=== PATIENT | male | born 1970 | race Caucasian/White ===

== ENCOUNTER 2025-03-19 18:17 | Emergency (ER) | payer BC, SELFPAY ==
[2025-03-19 18:20] VITALS: BP 154/90; PULSE 91; RESP 20; TEMP 36.6; O2SAT 97
--- NOTE | 2025-03-19 18:30 | DI.CT_ITS ---
Exam(s) CT BRAIN NECK CTA EXAM: CT BRAIN NECK CTA CLINICAL HISTORY: R neck pain s/p fall. TECHNIQUE: Imaging Protocol: Axial CT angiography was performed with multi- slice acquisition and multi-planar and MIP reconstructions. CONTRAST MATERIAL: Intravenous: Omnipaque 350 Contrast volume:85 ml COMPARISON: No exams were available for comparison FINDINGS: CT Head W/O and W contrast: Ventricles and Extra axial spaces: Normal in size and morphology for the patient's age. Hemorrhage: None. Cerebral parenchyma: No evidence of acute infarct or mass. Midline shift: None. Brainstem/Cerebellum: No acute findings.. Calvarium: Normal. Visualized Paranasal sinuses/Mastoids: Clear. Soft Tissues: Unremarkable. Enhancement: Normal. Venous sinuses are patent. CTA Brain W: Internal Carotid Arteries: Right: No aneurysm, occlusion or significant stenosis. Left: No aneurysm, occlusion or significant stenosis. Middle Cerebral Arteries: Right: No aneurysm, occlusion or significant stenosis. Left: No aneurysm, occlusion or significant stenosis. Anterior Cerebral Arteries: Right: No aneurysm, occlusion or significant stenosis. Left: No aneurysm, occlusion or significant stenosis. Posterior cerebral Arteries: Right: No aneurysm, occlusion or significant stenosis. Left: No aneurysm, occlusion or significant stenosis. Vertebral Arteries: Right: No aneurysm, occlusion or significant stenosis. Left: No aneurysm, occlusion or significant stenosis. Basilar Artery: No aneurysm, occlusion or significant stenosis. CTA Neck W: Visualized aorta: Unremarkable. Visualized pulmonary arteries: Unremarkable. Subclavian arteries: Unremarkable. Common Carotid: Right: No dissection, occlusion or significant stenosis. Left: No dissection, occlusion or significant stenosis. External Carotid: Right: No dissection, occlusion or significant stenosis. Left: No dissection, occlusion or significant stenosis. Internal Carotid: Right: No dissection, occlusion or significant stenosis. Left: No dissection, occlusion or significant stenosis. Vertebral Artery: Right: No dissection, occlusion or significant stenosis. Left: No dissection, occlusion or significant stenosis. Lung Apices: No acute findings. Bones: Comminuted a displaced right clavicle fracture. Soft Tissues: Soft tissue swelling around the right clavicle. IMPRESSION: 1. CTA brain: Normal CTA examination of the [place] [facility] [place]. 2. Head CT: No acute abnormality. 3. CTA neck: Displaced, comminuted fracture of the right clavicle. No evidence of cervical spine fracture. No evidence of occlusion, significant stenosis or dissection. No evidence of vascular injury. The preliminary [facility] report was reviewed. RADIATION DOSE DELIVERED: Total DLP DATA REPOSITORY: All CT scans at this facility are submitted to the National Radiology Data Registry (NRDR) Dose Index Registry (DIR) with the [employer] (ACR). RADIATION OPTIMIZATION: All CT scans at this facility use at least one of these dose optimization techniques: automated exposure control; mA and/or kV adjustment per patient size (includes targeted exams where dose is matched to clinical indication); or iterative reconstruction.
--- NOTE | 2025-03-19 18:40 | DI.RAD_ITS ---
Exam(s) XR CLAVICLE RT EXAM: XR CLAVICLE RT CLINICAL HISTORY: R mid clavicle injury TECHNIQUE: 2D digital imaging was performed. Two views COMPARISON: No exams were available for comparison FINDINGS: BONES: There is a comminuted fracture of the midclavicle. There is more than a full shaft with of displacement as well as overriding of the fracture fragments. No additional fractures are identified. No bony destructive lesion is seen. JOINTS: No dislocation present. The AC joint is not widened. SOFT TISSUE: The visualized portions of the right lung are clear. No pneumothorax. IMPRESSION: Displaced, comminuted midclavicular fracture. The preliminary [facility] report was reviewed. DATA REPOSITORY: RADIATION DOSE DELIVERED:
--- NOTE | 2025-03-19 18:46 | DI.CT_ITS ---
Exam(s) CT CHEST/ABD/PEL W CT THORACIC LUMBAR SPINE REC EXAM: CT CHEST/ABD/PEL W CLINICAL HISTORY: R clavicle injury, significant mechanism. TECHNIQUE: Imaging Protocol: Axial computed tomography images with coronal and sagittal reformatted images were created and reviewed. Computer aided detection (CAD) was utilized. CONTRAST MATERIAL: Intravenous: Omnipaque 350 Contrast volume:100 ml Oral: no COMPARISON: CT CT BRAIN NECK CTA from 03/19/[address] THORACIC LUMBAR SPINE REC from 03/19/2025 FINDINGS: CHEST: Pulmonary parenchyma: Posterior dependent changes. Mild apical scarring. No consolidation. No dominant measurable mass. Tracheobronchial tree: No bronchiectasis. No mucous plugging.No bronchial wall thickening. Pleura: No effusion or pneumothorax. Mediastinum: Within normal limits. Pulmonary arteries: No visible emboli. Cardiovascular: No pericardial effusion. Thoracic aorta non-dilated. Bones: Comminuted displaced fracture of the mid right clavicle. No rib fractures are identified. No thoracic compression fractures. There are mild degenerative changes in the thoracic spine. Soft tissues: Soft tissue swelling around the right clavicle fracture. ABDOMEN and PELVIS: Liver: Mild streak artifact related to patient arm positioning. Normal density. No evidence of liver injury. No suspicious mass. Gallbladder and biliary tract: No evidence of stones or wall thickening. No biliary dilatation. Pancreas: Normal density, no abnormal calcifications or inflammatory process. Spleen: Normal. Kidneys: Normal size, contour and axis. No radiodense stones. No obstructive uropathy. No suspicious masses seen. Adrenal glands: No masses seen. Aorta: Abdominal portion non-dilated. Lymph nodes: Within normal limits. Soft tissues: Unremarkable. Bladder: Unremarkable. Bowel: No obstruction or bowel wall thickening. Peritoneal cavity: No ascites. No focal collection. No mesenteric inflammatory response. No free air. Bones: Degenerative disc changes at L5-S1. No evidence of fracture. Reproductive organs: Unremarkable for age. IMPRESSION: Comminuted right clavicle fracture. No evidence of rib fracture. No pneumothorax or pulmonary contusion. No acute abnormality is identified in the abdomen or pelvis. No evidence of thoracic or lumbar spine fracture. The preliminary [facility] report was reviewed. RADIATION DOSE DELIVERED: Total DLP DATA REPOSITORY: All CT scans at this facility are submitted to the National Radiology Data Registry (NRDR) Dose Index Registry (DIR) with the [employer] (ACR). RADIATION OPTIMIZATION: All CT scans at this facility use at least one of these dose optimization techniques: automated exposure control; mA and/or kV adjustment per patient size (includes targeted exams where dose is matched to clinical indication); or iterative reconstruction.
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
[2025-03-19 19:01] VITALS: BP 136/93; RESP 16; O2SAT 99
[2025-03-19 19:29] LABS: Abs Immature Grans 0.03 10^3/uL (0.0-0.06); HCT 44.5 % (40.0-50.0); HGB 15.5 g/dL (13.5-17.5); Immature Grans % 0.3 %; MCH 32.2 pg (27.0-33.0); MCHC 34.8 % (32.0-36.0); MCV 92 fL (80-95); MPV 9.3 fL (8.0-11.0); Platelet Count 209 10^3/uL (130-400); RBC 4.82 10^6/uL (4.36-5.78); RDW 11.7 % (11.8-14.1); RDW-SD 39.8 fL; WBC 10.08 10^3/uL (4.4-10.8)
[2025-03-19] MEDS: ACETAMINOPHEN 1,000 MG/100 ML BAG 400 MG IVPB (19:40)
[2025-03-19 19:44] LABS: ALT 48 U/L (16-63); AST 42 U/L (15-37); Albumin 5.2 g/dL (3.4-5.0); Alkaline Phosphatase 74 U/L (46-116); Anion Gap 10.0 mmol/L (3-11); BUN 26 mg/dL (7-18); Bilirubin, Total 0.5 mg/dL (0.2-1.0); CO2 30.0 mmol/L (21.0-32.0); Calcium 9.6 mg/dL (8.5-10.1); Chloride 99 mmol/L (98-107); Estimated GFR 64.88 (mL/min/1.73m2); Glucose 91 mg/dL (74-106); Lipase 72 U/L (<78); Potassium 4.2 mmol/L (3.5-5.1); Sodium 139 mmol/L (136-145); Total Protein 9.2 g/dL (6.4-8.2)
[2025-03-19] MEDS: Normal Saline - Diluent 50 ML VIAL IJ (19:55)
[2025-03-19] MEDS: Omnipaque 350 MG/ML 100 ML BTL IJ (19:55)
[2025-03-19] MEDS: Normal Saline 500 ML 1000 ML IV (19:58)
--- NOTE | 2025-03-19 20:12 | DI.[facility]_ITS ---
PROCEDURE INFORMATION: Exam: CTA Head Without And With Contrast, Arteriography Exam date and time: 03/19/2025 7:29 PM Age: 54 years old Clinical indication: R neck pain S/P fall TECHNIQUE: Imaging protocol: Computed tomographic angiography of the head without and with contrast. Exam focused on the arteries. 3D rendering (Not supervised by radiologist): MIP and/or 3D reconstructed images were created by the technologist. Contrast material: 350; Contrast volume: 85 ml; Contrast route: INTRAVENOUS (IV); COMPARISON: No relevant prior studies available. FINDINGS: ANTERIOR CIRCULATION: Right internal carotid artery: Intracranial segment is patent with no significant stenosis or occlusion. No aneurysm. Right middle cerebral artery: No occlusion or significant stenosis. No aneurysm. Right anterior cerebral artery: No occlusion or significant stenosis. No aneurysm. Left internal carotid artery: Intracranial segment is patent with no significant stenosis. No aneurysm. Left middle cerebral artery: No occlusion or significant stenosis. No aneurysm. Left anterior cerebral artery: No occlusion or significant stenosis. No aneurysm. POSTERIOR CIRCULATION: Right vertebral artery: No occlusion or significant stenosis. No aneurysm. Left vertebral artery: No occlusion or significant stenosis. No aneurysm. Basilar artery: No occlusion or significant stenosis. No aneurysm. Right posterior cerebral artery: No occlusion or significant stenosis. No aneurysm. Left posterior cerebral artery: No occlusion or significant stenosis. No aneurysm. HEAD: Brain: No intracranial hemorrhage or extra-axial fluid collection. No evidence of mass effect or midline shift. Gillis-white matter differentiation is intact. Cerebral ventricles: Normal. No ventriculomegaly. Bones: Unremarkable. No acute fracture. Paranasal sinuses: Visualized sinuses are normal. No fluid levels. Mastoid air cells: Visualized mastoids are normal. No mastoid effusion. Soft tissues: Unremarkable. IMPRESSION: 1. No intracranial arterial occlusion or significant stenosis. 2. No acute findings on non-contrast Head CT images. ASPECTS score 10. PROCEDURE INFORMATION: Exam: CTA Neck Without And With Contrast Exam date and time: 03/19/2025 7:29 PM Age: 54 years old Clinical indication: Other: R neck pain S/P fall TECHNIQUE: Imaging protocol: Computed tomographic angiography of the neck without and with contrast. Exam focused on the cervical segments of the vasculature. 3D rendering (Not supervised by radiologist): MIP and/or 3D reconstructed images were created by the technologist. Contrast material: 350; Contrast volume: 85 ml; Contrast route: INTRAVENOUS (IV); COMPARISON: CT CHEST/ABD/PEL W 03/19/2025 7:29 PM FINDINGS: Right common carotid artery: No significant stenosis. No dissection or occlusion. Right internal carotid artery: Extracranial segment is patent with no significant stenosis (0% stenosis by NASCET criteria). No dissection or occlusion. Right external carotid artery: No occlusion or significant stenosis. Left common carotid artery: No significant stenosis. No dissection or occlusion. Left internal carotid artery: Extracranial segment is patent with no significant stenosis (0% stenosis by NASCET criteria). No dissection or occlusion. Left external carotid artery: No occlusion or significant stenosis. Right vertebral artery: No significant stenosis. No dissection or occlusion. Left vertebral artery: No significant stenosis. No dissection or occlusion. Soft tissues: Unremarkable. Bones/joints: No acute fracture. IMPRESSION: No occlusion or significant stenosis in the arteries of the neck. REFERENCES: NASCET CRITERIA. The degree of stenosis in the cervical segment of the internal carotid artery is based on NASCET criteria. Normal is no stenosis. Mild is less than 50% stenosis. Moderate is 50-69% stenosis. Severe is 70% to 99% stenosis. Total occlusion is no detectable patent lumen. Dictated and Authenticated by: Steve Oh MD. Orderin Patel Garcia MD
[2025-03-19 20:13] LABS: Glucose Negative (Negative)
--- NOTE | 2025-03-19 20:47 | DI.[facility]_ITS ---
PROCEDURE INFORMATION: Exam: CT Chest With Contrast; Diagnostic Exam date and time: 03/19/2025 7:29 PM Age: 54 years old Clinical indication: Other: R clavicle injury, significant mechanism TECHNIQUE: Imaging protocol: Diagnostic computed tomography of the chest with contrast. Contrast material: 350; Contrast volume: 85 ml; Contrast route: INTRAVENOUS (IV); COMPARISON: No relevant prior studies available. FINDINGS: Lungs: Unremarkable. No consolidation. No masses. Pleural spaces: Unremarkable. No pneumothorax. No pleural effusion. Heart: Unremarkable. No cardiomegaly. No pericardial effusion. Lymph nodes: Unremarkable. No enlarged lymph nodes. Vasculature: Unremarkable. No aortic aneurysm. Bones/joints: There is a comminuted right mid clavicular fracture. Soft tissues: Unremarkable. IMPRESSION: Right clavicular fracture. PROCEDURE INFORMATION: Exam: CT Abdomen And Pelvis With Contrast Exam date and time: 03/19/2025 7:29 PM Age: 54 years old Clinical indication: Other: R clavicle injury, significant mechanism TECHNIQUE: Imaging protocol: Computed tomography of the abdomen and pelvis with contrast. Contrast material: 350; Contrast volume: 85 ml; Contrast route: INTRAVENOUS (IV); COMPARISON: CT THORACIC LUMBAR SPINE REC 03/19/2025 7:29 PM FINDINGS: Liver: Normal. No mass. Gallbladder and biliary ducts: Normal. No calcified stones. No ductal dilation. Pancreas: Normal. No ductal dilation. Spleen: Normal. No splenomegaly. Adrenal glands: Normal. No mass. Kidneys and ureters: Normal. No hydronephrosis. Stomach and bowel: Unremarkable. No obstruction. No mucosal thickening. Appendix: No evidence of appendicitis. Intraperitoneal space: Unremarkable. No free air. No significant fluid collection. Vasculature: Unremarkable. No abdominal aortic aneurysm. Lymph nodes: Unremarkable. No enlarged lymph nodes. Urinary bladder: Unremarkable as visualized. Reproductive: Unremarkable as visualized. Bones/joints: Unremarkable. No acute fracture. Soft tissues: Unremarkable. IMPRESSION: No evidence for acute posttraumatic abnormality. Dictated and Authenticated by: Ana Storm MD. Orderin Patel Garcia MD
--- NOTE | 2025-03-19 20:55 | DI.VRAD_ITS ---
PROCEDURE INFORMATION: Exam: CT Thoracic Spine Without Contrast Exam date and time: 03/19/2025 7:29 PM Age: 54 years old Clinical indication: Other: Trauma TECHNIQUE: Imaging protocol: Computed tomography of the thoracic spine without contrast. COMPARISON: CT CHEST/ABD/PEL W 03/19/2025 7:29 PM FINDINGS: Bones/joints: Right mid clavicular fracture noted. Soft tissues: Unremarkable. Thyroid: Low-density left lobe thyroid lesion, 8 mm. Recommend sonography. Other findings: Motion slightly limits the exam. IMPRESSION: Right clavicular fracture. No additional fracture seen. PROCEDURE INFORMATION: Exam: CT Lumbar Spine Without Contrast Exam date and time: 03/19/2025 7:29 PM Age: 54 years old Clinical indication: Other: Trauma TECHNIQUE: Imaging protocol: Computed tomography of the lumbar spine without contrast. COMPARISON: No relevant prior studies available. FINDINGS: Bones/joints: No acute fracture. Normal alignment. No significant disc bulge or herniation. Moderate spondylosis L5-S1. No severe spinal canal stenosis. No significant neural foraminal narrowing. Soft tissues: Unremarkable. IMPRESSION: No evidence for acute posttraumatic abnormality. Dictated and Authenticated by: Ana Storm MD. Orderin Patel Garcia MD
--- NOTE | 2025-03-19 20:58 | DI.VRAD_ITS ---
PROCEDURE INFORMATION: Exam: XR Right Clavicle, Complete Exam date and time: 03/19/2025 7:52 PM Age: 54 years old Clinical indication: Other: R mid clavicle injury TECHNIQUE: Imaging protocol: Radiologic exam of the right clavicle. Complete exam. Views: Any number of views. COMPARISON: CT CHEST/ABD/PEL W 03/19/2025 7:29 PM FINDINGS: Bones/joints: There is a slightly comminuted oblique right mid clavicular fracture with approximately 1 shaft width of superior displacement. Soft tissues: Normal. IMPRESSION: Comminuted right clavicular fracture. Dictated and Authenticated by: Ana Storm MD. Orderin Patel Garcia MD
[2025-03-19] MEDS: Acetaminophen 500 MG TAB 3000 MG PO (21:29)
[2025-03-19 21:31] VITALS: BP 145/88; PULSE 89; RESP 16; O2SAT 97
== END 2025-03-19 21:34 | disposition home or self-care (01) ==
PROVIDERS: Emergency Provider Nurse Practitioner Family
DX: S42.021A Displaced fracture of shaft of right clavicle, initial encounter for closed fracture (principal); V18.0XXA Pedal cycle driver injured in noncollision transport accident in nontraffic accident, initial encounter
CPT/HCPCS: 70496; 70498; 74177; 80053; 83690; 96361; 96365; 99285; 71260; 73000; 81003; 85025; 99284; J0131; J3490